=== PATIENT | female | born 1970 | race African-American/Black ===

== ENCOUNTER → 2017-11-24 09:53 | Outpatient (CLI) | payer MEDICAID, SELFPAY ==
[2017-11-24 10:08] LABS: Basophils % 0.3 % (0.1-2.0); Eosinophils # 0.4 K/mm3 (0.0-0.4); Eosinophils % 4.7 % (0.1-12.0); Hematocrit 38.4 % (37.0-47.0); Hemoglobin 12.2 g/dL (12.2-16.2); Lymphocytes # 3.1 K/mm3 (0.7-4.5); Lymphocytes % 41.2 K/mm3 (10-50); Mean Corpuscular HGB Conc 31.8 g/dL (31.8-35.4); Monocytes # 0.5 K/mm3 (0.1-1.0); Monocytes % 6.1 % (1.7-9.3); Neutrophils # 3.6 K/mm3 (1.8-7.8); Neutrophils % 47.7 % (37.0-80.0); Platelet Count 189 K/mm3 (142-424); Red Blood Count 4.52 M/mm3 (4.20-5.40); Red Cell Distribution Width 13.6 % (11.5-17.5); White Blood Count 7.6 K/mm3 (4.8-10.8)
[2017-11-24 10:54] LABS: Blood Urea Nitrogen 18 mg/dL (7-18); Carbon Dioxide 33 mmol/L (21.0-32.0); Chloride 101 mmol/L (98-107); Creatinine,Serum 0.93 mg/dL (0.55-1.02); Estimated Glomerular Filt Rate 65 ml/min (>60); GFR (African American) 78 ML/MIN (>60); Glucose 132 mg/dL (74-106); Sodium 143 mmol/L (136-145)
== END ==
PROVIDERS: PCP Family Medicine; Visit Provider Surgery
DX: R10.13 Epigastric pain (principal)
CPT/HCPCS: 36415; 80048; 85025; 93005

== ENCOUNTER 2017-12-09 06:56 | Day surgery (SDC) | payer MEDICAID, SELFPAY ==
[2017-12-09 07:13] VITALS: BMI 36.3
[2017-12-09 07:20] VITALS: BP 153/93; PULSE 71; RESP 18; TEMP 36.8; O2SAT 96
--- NOTE | 2017-12-09 07:30 | P.PN_ITS ---
[facility] Anesthesia Checklist - Patient Identification Patient Identification: Arm Band, Verbal (Name & ) - Structural Data Admitted From: Home Planned Operative Procedure/s: egd Consent for Planned Operative Procedure(s) Verified: Yes Verified Documents: Surgical Consent - NPO Status Verified Time NPO: 00:00 - Chart Verification Results Verified: CBC, BMP - Additional verifications Patient : No Anesthesia Reactions: No Hx Blood Transfusions: No Blood Transfusion Reaction: No Cephalosporin Allergy: No Previous Colonoscopy: No - Cardiovascular Assessment Heart Sounds: S1 & S2 Pulse Strength: Baseline Pulse Rhythm: Regular Peripheral Edema: No - Airway Assessment C-Spine Mobility Assessed: Yes TMJ Mobility Assessed: Yes Dentition: Edentulous - Neurological Assessment Level of Consciousness: Awake, Alert, Appropriate Hx Seizures: No Numbness or tingling in extremities: No - Anesthesia Plan Anesthesia Risk discussed: Yes ASA Class: III Anesthesia Type: [facility] Anesthesia HX I have reviewed the patient's past medical history: Yes Medical History: Reports:: Anxiety, Depression, Gastroesophageal Reflux Disease( GERD), Hyperlipidemia, Hypertension Denies:: Diabetes Mellitus Type 1, Diabetes Mellitus Type 2, Lung Disease, Seizures Laterality Cases: Right: Arthroscopy Knee Other Surgeries: Yes: Colonoscopy, EGD, Hernia Repair, Hysterectomy-Total, Tubal Ligation, Other Amputation: No Fractures: Yes (left hand ) *Family Hx:: Hypertension, Thyroid Disorder, Diabetes
[2017-12-09 07:37] VITALS: O2SAT 98
[2017-12-09 07:51] VITALS: BP 126/79; PULSE 89; RESP 20; TEMP 36.7; O2SAT 99
--- NOTE | 2017-12-09 07:53 | HMH.SCOPE ---
- Procedure: Date: 12/09/17 Procedure Performed:: Esophagogastroduodenoscopy with biopsy Indications:: This is a 47-year-old female who returns for short-term repeat esophagogastroduodenoscopy secondary to shallow antral ulcerations she is on medical therapy and is without complaints with regard to epigastric pain. Performing Provider:: Itz Darden MD Referring Provider:: Tata Leavitt APRN Sedation:: Monitored anesthesia care Procedure:: After informed consent was obtained, the patient was taken to the endoscopy suite. Monitored anesthesia care ensued after she was transferred to the left lateral decubitus position. The gastroscope was advanced. The stomach was entered. Retroflexion revealed a fairly small sliding hiatal hernia. Minimal inflammation was noted distally. No ulcerations were seen. Biopsies of the antrum were obtained. The pylorus was intubated. The duodenal mucosa appeared relatively normal. The gastroscope was carefully removed and the patient was transferred to recovery. Findings:: Ulcerations healed Fairly small sliding hernia Specimens:: Antral biopsy Recommendations:: Continue current medications Complications:: No immediate Estimated blood obtained (mL): 1
[2017-12-09 08:01] VITALS: BP 117/82; PULSE 81; RESP 18; O2SAT 100
[2017-12-09 08:11] VITALS: BP 119/78; PULSE 65; RESP 18; TEMP 36.6; O2SAT 100
[2017-12-09 08:21] VITALS: BP 120/79; PULSE 77; RESP 20; TEMP 36.8; O2SAT 99
== END 2017-12-09 08:30 | disposition home or self-care (01) ==
LOC: OUTP 06:57
PROVIDERS: Family Provider Family Medicine; PCP Nurse Practitioner; Visit Provider Surgery
PROC: 0DJ08ZZ Inspection of Upper Intestinal Tract, Via Natural or Artificial Opening Endoscopic (ICD-10-PCS; CPT 43235; principal; 2017-12-09 07:30)
DX: K44.9 Diaphragmatic hernia without obstruction or gangrene (principal); K25.9 Gastric ulcer, unspecified as acute or chronic, without hemorrhage or perforation; Z09 Encounter for follow-up examination after completed treatment for conditions other than malignant neoplasm; K29.70 Gastritis, unspecified, without bleeding
CPT/HCPCS: 43239

== ENCOUNTER → 2017-12-28 08:07 | Outpatient (CLI) | payer MEDICAID, SELFPAY ==
--- NOTE | 2017-12-28 08:32 | CA_ITS ---
PROCEDURE: 2-D M-mode and color Doppler study INDICATIONS FOR THE TEST: Chest pain COPD Heart Murmur Tobacco Smoking Palpitations+ Fatigue Syncope Edema+ Hypertension+Diabetes Mellitus Rheumatic Fever SOB GALLARDO+Obesity+Hyperlipidemia+ Family History HD Additional History ABN EKG, gerd PATIENT INFORMATION HEIGHT: 66 WEIGHT: 224 GENDER: Female B/P: 141/87 2-D/M-MODE INTERPRETATION: 2-D MEASUREMENTS OBSERVED VALUES IN CMS Right Ventricular Dimension (RVDd) 2.3 Interventricular Septum (Thickness)(IVsd) 0.9 Left Ventricular Internal Dimensions(LVIDd) 5.0 Left Ventricular Posterior Wall (Thickness)(LVPWd) 0.9 Aortic Root 2.6 Aortic Cusp Separation 2.0 Left Atrial Dimensions (LAD) 3.4 2D 1. Left atrium is mildly enlarged, left ventricle is normal size, there is mild qualitative concentric left ventricular hypertrophy, visually estimated ejection fraction of 50% with no obvious regional wall motion abnormality, endocardial surface of poorly visualized. 2. The right atrium and right ventricle are normal size and contractility. 3. The aortic valve is thickened and calcified leaflet continue to display mobility. 4. The mitral and tricuspid valvular grossly normal. 5. The pulmonic valve is poorly visualized 6. No significant pericardial effusion noted. DOPPLER INTERROGATION: Doppler interrogation of the aortic, mitral and tricuspid valvular presence of moderate aortic, mild mitral and tricuspid regurgitation, tricuspid and jet velocity is insufficient for calculation of the right ventricular systolic pressure, diastolic parameters are inconclusive. CONCLUSION: 1. Mildly enlarged left atrium, normal left ventricular size, mild qualitative concentric left ventricular hypertrophy, visually estimated ejection fraction 50% with no obvious regional wall motion abnormality, diastolic parameters are inconclusive. 2. Thickened and calcified aortic valve without aortic stenosis, there is moderate aortic insufficiency. 3. Mild mitral and tricuspid regurgitation 4. No significant pericardial effusion noted.
--- NOTE | 2017-12-28 09:14 | MM_ITS ---
MM Dig screening mamm BI w/CAD CAD Screening COMPARISON: Digital mammograms 09/24/2010 and digital right mammogram 06/12/2011 INDICATION: There is a history of breast cancer in the patient maternal aunt diagnosed before menopause. TECHNIQUE: Standard CC and MLO images were obtained. R2 CAD reviewed. FINDINGS: Moderate fibroglandular densities are seen in the central portions of both breast again slightly more prominent right breast than left. There are stable asymmetric glandular elements upper outer quadrant right breast. There is a benign-appearing calcification right breast. There is no suspicious lesion and there are no suspicious microcalcifications. IMPRESSION: Moderate breast density with no suspicious lesion seen BI-RADS Category: 2 Benign Finding(s) RECOMMENDED FOLLOW-UP: 1YR - 1 YEAR FOLLOW-UP (A letter has been sent to the patient regarding results of the study.)
== END ==
PROVIDERS: Family Provider Family Medicine; PCP Nurse Practitioner; Visit Provider Nurse Practitioner
DX: Z12.31 Encounter for screening mammogram for malignant neoplasm of breast (principal); R94.31 Abnormal electrocardiogram [ECG] [EKG]
CPT/HCPCS: 77067; 93017; 93306

== ENCOUNTER → 2017-12-28 09:30 | Outpatient (CLI) | payer MEDICAID, SELFPAY ==
[2017-12-28 09:51] LABS: Basophils % 0.3 % (0.1-2.0); Eosinophils # 0.2 K/mm3 (0.0-0.4); Eosinophils % 3.1 % (0.1-12.0); Hematocrit 41.2 % (37.0-47.0); Lymphocytes % 35.9 K/mm3 (10-50); Mean Corpuscular HGB Conc 31.5 g/dL (31.8-35.4); Mean Corpuscular Hemoglobin 27.4 pg (27.0-31.2); Mean Platelet Volume 7.9 fl (7.4-10.4); Monocytes # 0.4 K/mm3 (0.1-1.0); Monocytes % 6.3 % (1.7-9.3); Neutrophils % 54.4 % (37.0-80.0); Platelet Count 241 K/mm3 (142-424); Red Blood Count 4.74 M/mm3 (4.20-5.40); Red Cell Distribution Width 13.5 % (11.5-17.5); White Blood Count 5.5 K/mm3 (4.8-10.8)
[2017-12-28 10:00] LABS: Alanine Aminotransferase 50 U/L (12-78); Albumin Level 4.2 gm/dL (3.4-5.0); Albumin/Globulin Ratio 1.2 (1.1-1.8); Alkaline Phosphatase 100 U/L (46-116); Anion Gap 10.4 mEq/L (5-15); Aspartate Amino Transferase 25 U/L (15-37); Bilirubin,Total 0.3 mg/dL (0.2-1.0); Blood Urea Nitrogen 13 mg/dL (7-18); Calcium 9.1 mg/dL (8.5-10.1); Carbon Dioxide 34 mmol/L (21.0-32.0); Chloride 98 mmol/L (98-107); Chol/HDL Ratio 2.5 (1-3.5); Cholesterol 158 mg/dL (140-200); Creatinine,Serum 0.88 mg/dL (0.55-1.02); Estimated Glomerular Filt Rate 69 ml/min (>60); GFR (African American) 83 ML/MIN (>60); Globulin 3.4 gm/dl (1.3-3.2); Glucose 114 mg/dL (74-106); HDL Cholesterol 64 mg/dL (29-89); LDL Cholesterol 85 mg/dL (0-130); Potassium 3.4 mmoL/L (3.5-5.1); Sodium 139 mmol/L (136-145); Total Protein,Serum 7.6 gm/dL (6.4-8.2); Triglycerides 44 mg/dL (30-200); VLDL Cholesterol 9 mg/dL (0-40)
[2017-12-29 10:31] LABS: FSH 30.6 mIU/mL (.); LH 9.6 mIU/mL (.)
== END ==
PROVIDERS: Visit Provider Nurse Practitioner Obstetrics & Gynecology
DX: Z01.419 Encounter for gynecological examination (general) (routine) without abnormal findings (principal)
CPT/HCPCS: 36415; 80053; 80061; 83001; 83002; 85025

== ENCOUNTER → 2018-04-27 14:25 | Outpatient (CLI) | payer MEDICAID, SELFPAY ==
--- NOTE | 2018-04-27 14:27 | CT_ITS ---
CT sinus wo con CLINICAL INDICATION: Headaches, sinus infection, sinus polyps ITS.REASON: sinus polps ORDERING PHYSICIAN: Denis Joshua MD PATIENT AGE: 48 years COMPARISON: 01/24/2018 TECHNIQUE:Axial, sagittal, and coronal images are generated and reviewed without contrast. All CT scans at the facility use one or more dose reduction, viz: automated exposure control; ma/kV adjustment per patient size (including targeted exams where dose is matched to indication; i.e. head); or iterative reconstruction technique. FINDINGS: The frontal, ethmoid, and sphenoid sinuses have an unremarkable appearance. There is a retention cyst or polyp in the anterior aspect of the left maxillary sinus and 12 mm and also one in the posterior aspect of the right maxillary sinus at 8 mm. not significantly changed. No sinus air-fluid level is evident. The ostiomeatal units are patent. There is mild leftward nasal septal deviation.. The orbits have an unremarkable appearance as do the mastoid sinuses. There is some mild prominence of the adenoids and some increased soft tissue density in the right palatine tonsillar region. This is of questionable clinical significance and may benefit from direct visualization. There are scattered small nodes in the upper neck. The TMJs have an unremarkable appearance. IMPRESSION: 1. Small retention cysts or polyps in the maxillary sinuses not significantly changed. 2. Mild leftward nasal septal deviation. 3. Mild hypertrophy of the adenoids along with increased soft tissue density in the right palatine tonsil region which may benefit from direct visualization
== END ==
PROVIDERS: Family Provider Family Medicine; PCP Nurse Practitioner; Visit Provider Otolaryngology
DX: J30.9 Allergic rhinitis, unspecified (principal); J32.9 Chronic sinusitis, unspecified; J33.9 Nasal polyp, unspecified
CPT/HCPCS: 70486

== ENCOUNTER → 2018-06-23 08:15 | Outpatient (CLI) | payer MEDICAID, SELFPAY | PROVIDERS: Family Provider Family Medicine; PCP Family Medicine; Visit Provider Nurse Practitioner | DX: M79.89 Other specified soft tissue disorders (principal) | CPT/HCPCS: 93306 ==

== ENCOUNTER → 2018-10-13 14:20 | Outpatient (CLI) | payer MEDICAID, SELFPAY ==
--- NOTE | 2018-10-13 14:21 | CT_ITS ---
CT sinus wo con CLINICAL HISTORY:Sinusitis 2 months ITS.REASON: chronic sinusitis ORDERING PHYSICIAN: Denis Joshua MD PATIENT AGE: 48 years COMPARISON:04/27/2018 CT sinus TECHNIQUE: Axial, sagittal and coronal images are generated and reviewed. All CT scans at this facility use one or more dose reduction techniques, viz.: automated exposure control, ma/kV adjustment per patient size (including targeted exams where dose is matched to indication, i.e. head) or iterative reconstruction technique. PROCEDURE: IV Contrast: None FINDINGS: Maxillary Sinuses.: Right Maxillary Sinus: Trace mucosal thickening at the inferior right maxillary sinus involving medial lateral wall and floor. Small dome-shaped focal area of mucosal thickening or retention cyst at posteriorly 5 mm height. 11 mm base Left Maxillary sinus: 11 mm x 12 mm mm round polypoid area of mucosal thickening or retention cyst at anterior roof left maxillary sinus just anterior to the ostium of the left omc.: Both the right and left ostiomeatal complex and pathways remain patent ------- Ethmoid Air Cells. Mild mucosal thickening at mid left ethmoid air cells. Unimpressive. Sphenoid Sinuses. Trace mucosal thickening posteriorly at central sphenoid sinus region. Frontal Sinuses: moderate size. No mucosal thickening or findings here. Orbits. Unremarkable Overall rims and floor of the orbit intact.... TMJ is unremarkable. Mastoid air cells. Well-developed clear bilaterally. No mastoid effusion. Middle ear clear. External canal unremarkable. IACs symmetric. . Prominent adenoidal hypertrophy for age. Slightly more pronounced today than previous study. Whether is generous tonsils persisting right more so than left as well as generous lymphoid tissue along the base the tongue. Warrants visual inspection IMPRESSION........ 1. Minor observations at maxillary sinuses: .Small retention cyst or polyps at anterior left maxillary sinus and posterior right maxillary sinus.... Slight additional scant mucosal thickening inferior right maxillary sinus since previous study. No air-fluid levels. 2. Only scant minimal additional mucosal thickening posterior sphenoid sinuses seen today with possible mild mucosal thickening left ethmoid air cell. 3. Prominent adenoidal hypertrophy for age. Slightly more pronounced today than previous study.
== END ==
PROVIDERS: PCP Family Medicine; Visit Provider Otolaryngology
DX: H92.01 Otalgia, right ear (principal); J32.0 Chronic maxillary sinusitis; M26.609 Unspecified temporomandibular joint disorder, unspecified side
CPT/HCPCS: 70486

== ENCOUNTER → 2018-10-28 10:45 | Outpatient (CLI) | payer MEDICAID, SELFPAY ==
[2018-10-28 11:46] LABS: Basophils % 0.2 % (0.1-2.0); Eosinophils # 0.1 K/mm3 (0.0-0.4); Eosinophils % 1.3 % (0.1-12.0); Hematocrit 40.6 % (37.0-47.0); Hemoglobin 12.9 g/dL (12.2-16.2); Lymphocytes # 2.4 K/mm3 (0.7-4.5); Lymphocytes % 24.6 % (10-50); Mean Corpuscular HGB Conc 31.9 g/dL (31.8-35.4); Mean Corpuscular Hemoglobin 28.2 pg (27.0-31.2); Mean Corpuscular Volume 88.5 fl (81-99); Mean Platelet Volume 7.1 fl (7.4-10.4); Monocytes # 0.5 K/mm3 (0.1-1.0); Monocytes % 4.7 % (1.7-9.3); Neutrophils # 6.7 K/mm3 (1.8-7.8); Neutrophils % 69.2 % (37.0-80.0); Platelet Count 216 K/mm3 (142-424); Red Blood Count 4.58 M/mm3 (4.20-5.40); Red Cell Distribution Width 14.3 % (11.5-17.5); White Blood Count 9.7 K/mm3 (4.8-10.8)
== END ==
PROVIDERS: Visit Provider Otolaryngology
DX: Z01.818 Encounter for other preprocedural examination (principal); J32.0 Chronic maxillary sinusitis
CPT/HCPCS: 36415; 85025; 93005

== ENCOUNTER → 2018-11-18 13:07 | Outpatient (CLI) | payer MEDICAID, SELFPAY ==
--- NOTE | 2018-11-18 13:12 | XR_ITS ---
XR chest 2V HISTORY: ITS.REASON: ASTHMATIC BROCHITIS, CHRONIC COUGH ORDERING PHYSICIAN: Charmaine Camarena PATIENT AGE: 48 years COMPARISON: 07/09/2018 and has been seeing these have become a problem of the FINDINGS: The cardiomediastinal silhouette and pulmonary vascularity are within normal limits. The lungs are clear without infiltrates, suspicious nodules, or pleural effusions. No acute bony abnormalities. IMPRESSION: Negative chest, no acute finding
== END ==
PROVIDERS: PCP Nurse Practitioner; Visit Provider Nurse Practitioner Family
DX: J45.909 Unspecified asthma, uncomplicated (principal); R05 Cough
CPT/HCPCS: 71046

== ENCOUNTER 2019-10-15 19:13 | Inpatient (IN) | payer OTHER, SELFPAY ==
[2019-10-15 19:16] VITALS: BP 152/106; PULSE 81; RESP 20; TEMP 36.8; O2SAT 99; BMI 35.5
--- NOTE | 2019-10-15 19:38 | ECG_ITS ---
APPROVED REPORT Exam: Resting ECG HR:0 bpm ECG Measurements Heart Rate 0 AXES QRSd QRS 0 QT T 0 <Conclusion> No QRS complexes found, no ECG analysis possible Electronically signed by : Michael Estrella, 10/16/2019 18:12:20
[2019-10-15 19:53] LABS: Microscopic, Urine URINE MICROSCOPIC (MICROSCOPIC)
[2019-10-15 19:53] LABS: Adenovirus F 40/41, stool Not Detected (NotDetected); Astrovirus Not Detected (NotDetected); Campylobacter Not Detected (NotDetected); Cryptosporidium Not Detected (NotDetected); Cyclospora Cayetanesis Not Detected (NotDetected); Entamoeba histolytica Not Detected (NotDetected); Enteroaggregative E coli Not Detected (NotDetected); Enteropathogenic E coli Not Detected (NotDetected); Enterotoxigenic E coli Not Detected (NotDetected); Giardia lamblia Not Detected (NotDetected); Norovirus Not Detected (NotDetected); Plesimonas Shigalloides, PCR Not Detected (NotDetected); Rotavirus A Not Detected (NotDetected); Salmonella, PCR Not Detected (NotDetected); Sapovirus Not Detected (NotDetected); Shiga-like toxin E coli Not Detected (NotDetected); Shigella Enterovasive E coli Not Detected (NotDetected); Vibrio Cholerae Not Detected (NotDetected); Vibrio, PCR Not Detected (NotDetected); Yersinia Entercolitica, PCR Not Detected (NotDetected)
[2019-10-15 20:13] LABS: Basophils % 0.2 % (0.1-2.0); Eosinophils # 0.1 K/mm3 (0.0-0.4); Eosinophils % 1.8 % (0.1-12.0); Hematocrit 36.7 % (37.0-47.0); Hemoglobin 13.2 g/dL (12.2-16.2); Lymphocytes # 1.4 K/mm3 (0.7-4.5); Lymphocytes % 18.2 % (10-50); Mean Corpuscular HGB Conc 35.9 g/dL (31.8-35.4); Mean Corpuscular Hemoglobin 31.4 pg (27.0-31.2); Mean Corpuscular Volume 87.3 fl (81-99); Mean Platelet Volume 7.8 fl (7.4-10.4); Monocytes # 0.3 K/mm3 (0.1-1.0); Monocytes % 3.9 % (1.7-9.3); Neutrophils # 5.9 K/mm3 (1.8-7.8); Neutrophils % 75.9 % (37.0-80.0); Platelet Count 194 K/mm3 (142-424); Red Cell Distribution Width 14.4 % (11.5-17.5); White Blood Count 7.8 K/mm3 (4.8-10.8)
--- NOTE | 2019-10-15 20:14 | HMH.EDGENADL ---
ED Disposition Clinical Impression: Small bowel obstruction, C. difficile diarrhea Disposition: Admitted as Observation Condition on Discharge: Fair - Critical Care Critical Care Time: No Attestation: On 10/15/19, the high probability of a clinically significant, sudden or life threatening deterioration of the following system(s) required my full and direct attention, intervention and personal management. The time I documented below is in addition to time spent performing reported procedures but includes the following listed in this critical care notation. Medical Decision Making - Andrea Inquiry Pt receiving controlled substance: Yes Andrea was queried for this patient: Yes Reference #:: [id number] Risks and benefits of using a controlled substance: were not discussed with pt by me Comment: 7 rxs. was on suboxone until january Vital Signs: 10/15/19 19:16 10/15/19 20:15 10/15/19 21:32 Temperature 98.3 F Temperature Source Oral Pulse Rate Pulse Rate [Right Brachial] 81 89 77 Respiratory Rate 20 16 16 Blood Pressure Blood Pressure [Right Arm] 152/106 H 150/88 H 146/86 H Blood Pressure Mean [Right Arm] 121 108 106 Blood Pressure Source Blood Pressure Source [Right Arm] Automatic Cuff Automatic Cuff Automatic Cuff Blood Pressure Position Blood Pressure Position [Right Arm] Supine Sitting Sitting 02 Sat by Pulse Oximetry 99 99 98 Oxygen Delivery Method Room Air Room Air Room Air 10/15/19 22:58 10/15/19 23:02 Temperature 98.3 F Temperature Source Oral Pulse Rate 70 Pulse Rate [Right Brachial] 70 Respiratory Rate 20 18 Blood Pressure 148/73 H Blood Pressure [Right Arm] 148/73 H Blood Pressure Mean [Right Arm] 98 Blood Pressure Source Automatic Cuff Blood Pressure Source [Right Arm] Automatic Cuff Blood Pressure Position Sitting Blood Pressure Position [Right Arm] 02 Sat by Pulse Oximetry 98 Oxygen Delivery Method Room Air Room Air - Lab Data Lab Results 10/15/19 18:34: Troponin I < 0.02 10/15/19 19:42: Stl Aeromonas (PCR) Not detected, Stl C. cayetanensis PCR Not detected, Stool Rotavirus (PCR) Not detected, Stl Adenov F 40/41 PCR Not detected, Stool Astrovirus (PCR) Not detected, Stool Campylobacter PCR Not detected, Stl C.difficile Tox PCR Detected A, Stool Cryptosporidium PCR Not detected, Stl E.coli Shiga Tox PCR Not detected, Stool E coli O157 PCR Not detected, Stl Enterotoxigenic E PCR Not detected, Stool EPEC (PCR) Not detected, Stool EAEC (PCR) Not detected, Stl E. histolytica PCR Not detected, Stool Giardia Lamblia PCR Not detected, Stool Salmonella PCR Not detected, Stool Sapovirus (PCR) Not detected, Stl P. shigelloides PCR Not detected, Stl Shigella/EIEC PCR Not detected, St Y.enterocolitica PCR Not detected, Stool Vibrio (PCR) Not detected, Stl Vibrio cholerae PCR Not detected, Stl Norovirus GI/GII PCR Not detected 10/15/19 19:45: WBC 7.8, RBC 4.20, Hgb 13.2, Hct 36.7 L, MCV 87.3, MCH 31.4 H, MCHC 35.9 H, RDW 14.4, Plt Count 194, MPV 7.8, Neut % (Auto) 75.9, Lymph % (Auto) 18.2, [place] % (Auto) 3.9, Eos % (Auto) 1.8, Baso % (Auto) 0.2, Neut # (Auto) 5.9, Lymph # (Auto) 1.4, [place] # (Auto) 0.3, Eos # (Auto) 0.1, Baso # (Auto) 0.0 10/15/19 19:45: Sodium 139, Potassium 3.2 L, Chloride 101, Carbon Dioxide 25, Anion Gap 16.2 H, BUN 10, Creatinine 0.82, Estimated Creat Clear 131, Estimated GFR 74, Est GFR ( Amer) 90, Glucose 89, Calcium 9.1, Total Bilirubin 0.4, AST 13 L, ALT 26, Alkaline Phosphatase 99, Total Protein 7.4, Albumin 3.7, Globulin 3.7 H, Albumin/Globulin Ratio 1.0 L, Amylase 36 10/15/19 19:45: Lipase 86 10/15/19 19:48: Urine Color Yellow, Urine Appearance Clear, Urine pH 6.5, Ur Specific [place] <= 1.005, Urine Protein Negative, Urine Glucose (UA) Negative, Urine Ketones Negative, Urine Blood Negative, Urine Nitrate Negative, Urine Bilirubin Negative, Urine Urobilinogen 0.2, Ur Leukocyte Esterase Negative, Amorphous Sediment Trace Result diagrams: 10/15/19 19:45
[2019-10-15 20:15] VITALS: BP 150/88; PULSE 89; RESP 16; O2SAT 99
[2019-10-15 20:15] LABS: Lipase 86 u/L (73-393)
[2019-10-15 20:18] LABS: Alanine Aminotransferase 26 U/L (12-78); Albumin Level 3.7 gm/dL (3.4-5.0); Alkaline Phosphatase 99 U/L (46-116); Amylase 36 U/L (25-115); Anion Gap 16.2 mEq/L (5-15); Aspartate Amino Transferase 13 U/L (15-37); Bilirubin,Total 0.4 mg/dL (0.2-1.0); Blood Urea Nitrogen 10 mg/dL (7-18); Calcium 9.1 mg/dL (8.5-10.1); Carbon Dioxide 25 mmol/L (21.0-32.0); Chloride 101 mmol/L (98-107); Creatinine Clearance Estimated 131 mL/min (50-200); Creatinine,Serum 0.82 mg/dL (0.55-1.02); Estimated Glomerular Filt Rate 74 ml/min (>60); GFR (African American) 90 ML/MIN (>60); Globulin 3.7 gm/dl (1.3-3.2); Glucose 89 mg/dL (74-106); Potassium 3.2 mmoL/L (3.5-5.1); Sodium 139 mmol/L (136-145); Total Protein,Serum 7.4 gm/dL (6.4-8.2)
--- NOTE | 2019-10-15 20:24 | CT_ITS ---
PROCEDURE: CT ABDOMEN PELVIS W CON CLINICAL INDICATION: epigastric pain, feels a knot, patient has diagnosis of C diff colitis COMPARISON: No exams were available for comparison TECHNIQUE: IV Contrast: 75ML OPTIRAY 350 Oral Contrast none Axial images obtained with sagittal and coronal reformats. All CT scans at the facility use one or more dose reduction, viz: automated exposure control, ma/kV adjustment per patient size (including targeted exams where dose is matched to indication, i.e. head), or iterative reconstruction technique. FINDINGS: Lower thorax: No acute finding ABDOMEN: Liver: No masses or biliary dilatation. Gallbladder: Post cholecystectomy Pancreas: No masses or peripancreatic fluid collections. Spleen: unremarkable Adrenals: unremarkable Kidneys/ureters: The kidneys are normal in size and show symmetrical function both appearing normal. PELVIS: Reproductive: Post hysterectomy. Bladder: The urinary bladder is mostly decompressed, there is no free fluid in the pelvis. Appendix: The appendix is not definitely identified but there are no pericecal inflammatory changes. ABDOMEN & PELVIS: Stomach bowel: The stomach is normal. There are mildly dilated fluid-filled loops of small bowel throughout. There is a gradual decrease in caliber between the jejunum and mid and distal small bowel but there is no definite transition zone identified. There is moderate gaseous dilatation of the ascending and transverse colon. The descending and sigmoid colon are basically decompressed. Peritoneum: No abnormal fluid collections. No obvious inflammatory changes. No free air. There are bilateral fat containing inguinal hernias. Lymph nodes: No enlarged lymph nodes apparent. Vasculature: No evidence of abdominal aortic aneurysm. No retroperitoneal hemorrhage evident. Bones: No acute fracture IMPRESSION: Mildly abnormal small and large bowel a findings most consistent with clinical suspicion of C diff colitis and/or enteritis. Doubt mechanical small bowel obstruction Dictated by: Dr. Maikol Loza MD 10/16/2019 09:[address] Maikol Loza MD in [place] 10/16/2019 09:13
[2019-10-15 20:38] LABS: Appearance,Urine CLEAR (Clear); Bilirubin,Urine Negative (Negative); Blood, Urine Negative (Negative); Color,Urine YELLOW (Yellow); Glucose,Urine (UA) Negative (Negative); Ketones,Urine Negative (Negative); Leukocyte Esterase,Urine Negative (Negative); Nitrate,Urine Negative (Negative); PH,Urine 6.5 (5.0-8.5); Protein,Urine Negative (Negative); Specific Gravity, Urine <= 1.005 (1.005-1.030); Urobilinogen,Urine 0.2 EU/dl (0.2)
[2019-10-15 20:52] LABS: Amorphous Sediment,Urine Trace /lpf
[2019-10-15 20:59] LABS: Troponin I < 0.02 ng/ml (0.00-0.06)
[2019-10-15 21:32] VITALS: BP 146/86; PULSE 77; RESP 16; O2SAT 98
--- NOTE | 2019-10-15 21:59 | PC.NURSE ---
Dr Darden paged
--- NOTE | 2019-10-15 22:06 | PC.NURSE ---
Dr Taylor spoke with Dr Darden
[2019-10-15 22:53] LABS: Clostridium Difficile A/B, PCR Detected (NotDetected)
[2019-10-15 22:58] VITALS: BP 148/73; PULSE 70; RESP 20; O2SAT 98
--- NOTE | 2019-10-15 23:00 | PC.NURSE ---
speaking with dr calvillo again regarding pt having c diff
[2019-10-15 23:02] VITALS: BP 148/73; PULSE 70; RESP 18; TEMP 36.8; O2SAT 98
[2019-10-15 23:20] VITALS: BP 152/72; PULSE 71; RESP 21; TEMP 36.9; O2SAT 99; BMI 33.2
--- NOTE | 2019-10-15 23:29 | PC.NURSE ---
Pt arrived to floor at [id number]
[2019-10-16 04:00] VITALS: BP 129/79; PULSE 71; RESP 21; TEMP 36.8; O2SAT 98
--- NOTE | 2019-10-16 05:24 | PC.NURSE ---
PT. HAS C/O EPIGASTRIC PAIN X2 THIS SHIFT; TX WITH MORPHINE PER MAR; EFFECTIVENESS REPORTED. PT. C/O NAUSEA X1 THIS SHIFT; TX WITH ZOFRAN PER MAR; EFFECTIVENESS NOTED. PT. HAS NOT REPORTED ANY EPISODES OF VOMITING OR DIARRHEA THIS SHIFT. PT. HAS NOT C/O DIZZINESS OR SOA.
[2019-10-16 06:05] LABS: Basophils % 0.2 % (0.1-2.0); Eosinophils # 0.1 K/mm3 (0.0-0.4); Eosinophils % 2.7 % (0.1-12.0); Hematocrit 38.9 % (37.0-47.0); Hemoglobin 12.1 g/dL (12.2-16.2); Lymphocytes # 1.5 K/mm3 (0.7-4.5); Lymphocytes % 28.7 % (10-50); Mean Corpuscular HGB Conc 31.1 g/dL (31.8-35.4); Mean Corpuscular Hemoglobin 27.9 pg (27.0-31.2); Mean Corpuscular Volume 89.6 fl (81-99); Mean Platelet Volume 7.7 fl (7.4-10.4); Monocytes # 0.3 K/mm3 (0.1-1.0); Monocytes % 6.2 % (1.7-9.3); Neutrophils # 3.3 K/mm3 (1.8-7.8); Neutrophils % 62.3 % (37.0-80.0); Platelet Count 186 K/mm3 (142-424); Red Blood Count 4.34 M/mm3 (4.20-5.40); Red Cell Distribution Width 14.5 % (11.5-17.5); White Blood Count 5.2 K/mm3 (4.8-10.8)
[2019-10-16 06:15] LABS: Anion Gap 12.3 mEq/L (5-15); Blood Urea Nitrogen 9 mg/dL (7-18); Carbon Dioxide 29 mmol/L (21.0-32.0); Chloride 104 mmol/L (98-107); Creatinine Clearance Estimated 138 mL/min (50-200); Creatinine,Serum 0.75 mg/dL (0.55-1.02); Estimated Glomerular Filt Rate 82 ml/min (>60); GFR (African American) 99 ML/MIN (>60); Glucose 88 mg/dL (74-106); Potassium 3.3 mmoL/L (3.5-5.1); Sodium 142 mmol/L (136-145)
[2019-10-16 08:00] VITALS: BP 163/85; PULSE 91; RESP 22; TEMP 36.6; O2SAT 95
--- NOTE | 2019-10-16 08:34 | HMH.GSHP ---
HPI HPI: This is a 49-year-old female with a long history of intermittent abdominal pain who was scheduled to see gastroenterology today for further outpatient evaluation. She presented overnight to the emergency department with increasing crampy abdominal pain and diarrhea. No fevers. No hematemesis. No nausea or vomiting. No abdominal distention. She had radiographic evidence consistent with possible small bowel obstruction from internal herniation and she also had laboratory evidence of a C. difficile infection. She was placed on antibiotics and admitted for ongoing evaluation and management. [facility] History Medical History: Reports:: Anxiety, Depression, Gastroesophageal Reflux Disease(GERD), Hyperlipidemia, Hypertension, Migraine Denies:: Cancer, Diabetes Mellitus Type 1, Diabetes Mellitus Type 2, Internal Pacemaker, Lung Disease, MRSA, Seizures *Have you ever received a pneumonia vaccine?: No *Have you received a flu vaccine this season?: No Other Medical History: Denies: Blood Transfusion Reaction Laterality Cases: Right: Arthroscopy Knee Other Surgeries: Yes: Cholecystectomy, Colonoscopy, EGD, Hernia Repair, Hysterectomy-Total, Tubal Ligation, Other. No: Pacemaker Amputation: No Fractures: Yes (right foot x2) - *Social History Educational Level: Completed High School Smoking Status: Never smoker Alcohol Intake: current Alcohol Intake Frequency:: a few times a month Substance Use Type: denies use *Occupational Status:: unemployed Housing: house *Travel in the last 8 weeks: None - Psychiatric History Pschychiatric History:: Reports:: Anxiety, Depression Family Hx:: Diabetes, Hypertension Review of Systems - Constitutional Denies chills - Eyes Denies change in vision - ENT Denies difficulty swallowing - *Cardiovascular Denies chest pain - *Respiratory Denies cough - *Gastrointestinal Reports abdominal pain, Reports loose stools, Denies nausea, Denies vomiting - *Genitourinary Denies difficulty urinating - *Musculoskeletal Denies deformity - Integumentary/Breasts Denies lesions - *Neurologic Denies abnormal movements - Psychiatric Denies anxiety - Endocrine Denies cold intolerance - Hematologic/Lymphatic Denies easy bleeding - Allergic/Immunologic Denies hives Meds Home Medications Medication Instructions Recorded Confirmed Type hydrochlorothiazide 25 mg tablet 25 mg PO BID 10/19/17 10/15/19 History Atorvastatin Calcium [Atorvastatin 20 mg PO DAILY 12/09/17 10/15/19 History 20mg Tab] propranolol 40 mg tablet 40 mg PO BID 30 Days #60 05/30/18 10/15/19 History raNITIdine HCl [Acid Assayer Helper] 150 mg PO BID 10/15/19 10/15/19 History Allergies Allergy/AdvReac Type Severity Reaction Status Date / Time codeine [CODEINE] Allergy Intermediate I-ITCHING Verified 09/19/19 14:28 Exam Vital signs and Labs for Last 24 Hours: Temp Pulse Resp BP Pulse Ox 98.3 F 71 21 129/79 98 10/16/19 04:00 10/16/19 04:00 10/16/19 04:00 10/16/19 04:00 10/16/19 04:00 Laboratory Results - last 24 hr 10/15/19 18:34: Troponin I < 0.02 10/15/19 19:42: Stl Aeromonas (PCR) Not detected, Stl C. cayetanensis PCR Not detected, Stool Rotavirus (PCR) Not detected, Stl Adenov F 40/41 PCR Not detected, Stool Astrovirus (PCR) Not detected, Stool Campylobacter PCR Not detected, Stl C.difficile Tox PCR Detected A, Stool Cryptosporidium PCR Not detected, Stl E.coli Shiga Tox PCR Not detected, Stool E coli O157 PCR Not detected, Stl Enterotoxigenic E PCR Not detected, Stool EPEC (PCR) Not detected, Stool EAEC (PCR) Not detected, Stl E. histolytica PCR Not detected, Stool Giardia Lamblia PCR Not detected, Stool Salmonella PCR Not detected, Stool Sapovirus (PCR) Not detected, Stl P. shigelloides PCR Not detected, Stl Shigella/EIEC PCR Not detected, St Y.enterocolitica PCR Not detected, Stool Vibrio (PCR) Not detected, Stl Vibrio cholerae PCR Not detected, Stl Norovirus GI/GII PCR Not detected
--- NOTE | 2019-10-16 08:43 | XR_ITS ---
PROCEDURE: XR ACUTE ABDOMEN SERIES CLINICAL INDICATION: sbo / cDiff COMPARISON: CT scan abdomen and pelvis 10/15/2019 FINDINGS: The chest film reveals the lung noble are well-expanded and clear of infiltrate. The cardiac silhouette and vascularity are normal and there is no pleural fluid. Abdominal films show surgical clips right upper quadrant likely from previous cholecystectomy. There are few mildly dilated loops of small bowel mid abdomen. There is mild gaseous dilatation of the ascending colon, the descending and sigmoid colon are decompressed. There is no free air and no abnormal soft tissue shadows. IMPRESSION: Negative chest, mildly abnormal non-specific bowel gas pattern consistent with some degree of enteritis and/or colitis, there is less small bowel dilatation than seen on yesterday's CT scan Dictated by: Dr. Maikol Loza MD 10/16/2019 09:[address] Maikol Loza MD in [place] 10/16/2019 09:55
--- NOTE | 2019-10-16 11:34 | P.CONPHA_ITS ---
[facility] Pharmacy VTE Monitoring - Patient Demographics Admission date: 10/15/19 Report Date: 10/16/19 Time: 11:34 Allergies/Adverse Reactions: Patient Allergies codeine [CODEINE] Allergy (Intermediate, Verified 09/19/19 14:28) I-ITCHING Height: 1.7 m Weight: 96.19 kg Patient Problems: Current Active Problems Small bowel obstruction (Acute) C. difficile diarrhea (Acute) - VTE Risk Labs: VTE Related Lab Results Hgb 12.1 g/dL (12.2-16.2) L 10/16/19 05:47 Hct 38.9 % (37.0-47.0) 10/16/19 05:47 Plt Count 186 K/mm3 (142-424) 10/16/19 05:47 BUN 9 mg/dL (7-18) 10/16/19 05:47 Creatinine 0.75 mg/dL (0.55-1.02) 10/16/19 05:47 Estimated Creat Clear 138 mL/min (50-200) 10/16/19 05:47 Was VTE Risk Assessment Performed: Yes VTE Score: 3 VTE Risk Level: Low Risk - Prophylaxis VTE Prophylaxis Ordered?: Yes Types of VTE Prophylaxis: TEDS Knee High Location of Applied Device: Bilateral Lower Extremeties
--- NOTE | 2019-10-16 15:22 | HMH.PHAINT ---
HOME MEDICATIONS RECONCILED FROM MD OFFICE LIST AND SPEAKING WITH PATIENT. PATIENT STATES SHE ONLY TAKES 5 MEDICATIONS, ALTHOUGH THE MD LIST WAS MUCH LONGER. CALLED MD OFFICE AND TOLD THEM THE MEDS SHE TAKES AND THEY SAID THEY WOULD UPDATE THE LIST.
[2019-10-16 16:00] VITALS: BP 133/81; PULSE 70; RESP 16; TEMP 36.9; O2SAT 100
--- NOTE | 2019-10-16 16:07 | PC.NURSE ---
NO NEW CHANGES FROM PREVIOUS ASSESSMENT. PATIENT HAS TRIED SEVERAL TIMES THRU SHIFT TO REST. UNABLE TO DUE TO CRAMPING AND NAUSEA, THIS RN ADMINISTERED PAIN MEDICATION AND NAUSEA MEDICATION WHEN APPROPRIATE. PATIENT ABLE TO TAKE SHOWER WITH SHOWER CHAIR. AMBULATE IN ROOM, STEADY GAIT. NO OTHER CONCERNS OR NEEDS AT THIS TIME.
--- NOTE | 2019-10-16 19:25 | PC.NURSE ---
report given to giovani
[2019-10-16 19:59] VITALS: BP 164/87; PULSE 77; RESP 18; TEMP 36.5; O2SAT 98
--- NOTE | 2019-10-17 02:53 | PC.NURSE ---
A&O X4. PERRLA. 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 S1, S2 HEART SOUNDS NOTED UPON AUSCULTATION. +2 BILATERAL RADIAL AND PEDAL PULSES NOTED UPON PALPATION. CAP REFILL < 3 SECONDS. NO EDEMA NOTED THIS SHIFT THUS FAR. BILATERAL LUNG SOUNDS NOTED CLEAR THROUGHOUT UPON AUSCULTATION. PT DENIES HAVING A COUGH. TOLERATED RA WELL WITH NO COMPLAINTS. HYPERACTIVE BOWEL SOUNDS NOTED IN ALL 4 QUADS UPON AUSCULTATION. ABDOMEN NOTED SOFT, FLAT, WITH TENDERNESS NOTED IN THE UPPER LEFT QUAD. PT STATES SHE IS STILL HAVING DIARRHEA FREQUENTLY WITH WATERY CONSISTENCY AND ABD UPSET WITH NAUSEA. ADMINISTERED MORPHINE AND ZOFRAN PER DEC FOR RELIEF OF PAIN 8/10. PT STATES BOTH HELPED TREMENDOUSLY, RATING DECREASED PAIN A 4/10 UPON REASSESSMENT. PT HAS RESTED WELL THIS SHIFT WITH HER EYES CLOSED. AMB INDEPENDENTLY TO AND FROM BATHROOM WELL WITH NO COMPLAINTS. REFUSED TEDS. VSS. CALL LIGHT WITHIN REACH. REMAINS SAFE. WILL CONTINUE TO MONITOR.
[2019-10-17 03:40] VITALS: BP 153/87; PULSE 66; RESP 16; TEMP 36.8; O2SAT 99
[2019-10-17 05:57] VITALS: BMI 33.7
[2019-10-17 07:54] VITALS: BP 146/79; PULSE 104; RESP 18; TEMP 36.8; O2SAT 100
--- NOTE | 2019-10-17 08:04 | HMH.GSPN ---
Subjective Patient reports: feels better, diarrhea Exam Vital signs and Labs for Last 24 Hours: Temp Pulse Resp BP Pulse Ox 98.3 F 104 H 18 146/79 H 100 10/17/19 07:54 10/17/19 07:54 10/17/19 07:54 10/17/19 07:54 10/17/19 07:54 I & O for Last 24 hours: Intake & Output 10/14/19 10/15/19 10/16/19 10/17/19 11:59 11:59 11:59 11:59 Intake Total 825 / 825 2220 / 2220 Output Total 600 / 600 Balance 825 / 825 1620 / 1620 Weight 212 lb 1 oz 215 lb 3 oz - Constitutional no acute distress - *Routine Respiratory Exam Absent: respiratory distress - *Routine Cardiovascular Exam Present: RRR - *Routine Abdominal Exam Present: soft Progress Note: A&P (1) C. difficile diarrhea Status: Acute Assessment and plan: Improving after implementation of antibiotics. No definitive evidence radiographically of bowel obstruction and continuation of output essentially rules out the initial concern of small bowel obstruction. Discharge home today with completion of antibiotic course and close outpatient follow-up Current Visit: Yes
--- NOTE | 2019-10-17 08:06 | HMH.DCSUM ---
General - General Admission date:: 10/15/19 Discharge date: 10/17/19 HPI HPI: This is a 49-year-old female with a long history of intermittent abdominal pain who was scheduled to see gastroenterology today for further outpatient evaluation. She presented overnight to the emergency department with increasing crampy abdominal pain and diarrhea. No fevers. No hematemesis. No nausea or vomiting. No abdominal distention. She had radiographic evidence consistent with possible small bowel obstruction from internal herniation and she also had laboratory evidence of a C. difficile infection. She was placed on antibiotics and admitted for ongoing evaluation and management. Hospital Course Hospital Course: Follow-up abdominal films revealed improved bowel gas pattern. Reevaluation of the initial CT scan with radiology confirmed changes that were felt to be most likely consistent with her known C. difficile infection. No definitive evidence of small bowel obstruction noted. She continues to have bowel function and tolerated clear liquids. She was started on vancomycin by mouth and continued to convalesce well. She remained afebrile with stable and normal vital signs and was deemed appropriate for discharge home on the morning of October 17. Objective Vital signs: Temp Pulse Resp BP Pulse Ox 98.3 F 104 H 18 146/79 H 100 10/17/19 07:54 10/17/19 07:54 10/17/19 07:54 10/17/19 07:54 10/17/19 07:54 no acute distress - *Routine HEENT Exam Head: Present: normocephalic, atraumatic - *Routine Neck Exam Present: full ROM - Routine Chest/Breast/Axilla Exam Chest wall: Absent: tenderness - *Routine Respiratory Exam Absent: respiratory distress - *Routine Cardiovascular Exam Present: RRR - *Routine Abdominal Exam Present: soft - *Routine Extremities Exam Absent: cyanosis, clubbing, edema - Routine Back/Spine/Pelvis Exam Back/Spine: Present: full ROM - *Routine Skin Exam Present: intact - *Routine Neurological Exam Present: alert - Routine Psychiatric Exam Present: normal affect DS: Diagnosis - Discharge Diagnosis (1) C. difficile diarrhea Status: Acute Discharge Plan - Patient Discharge Instructions ACTIVITY: Ambulate as tolerated DIET: advance to your usual diet Patient Instructions: Clostridium difficile Infection - Follow up Plan Follow up with: Itz Darden MD [Staff Physician] - 2 weeks Disposition: Home, Self-Group Home Medications: Home Medications Medication Instructions Recorded Confirmed Type hydrochlorothiazide 25 mg tablet 25 mg PO BID 10/19/17 10/15/19 History Atorvastatin Calcium [Atorvastatin 20 mg PO DAILY 12/09/17 10/15/19 History 20mg Tab] propranolol 40 mg tablet 40 mg PO BID 30 Days #60 05/30/18 10/15/19 History raNITIdine HCl [Acid Enlisted Advisor] 150 mg PO BID 10/15/19 10/15/19 History Cholecalciferol (Vitamin D3) 50,000 unit PO MOTU 10/16/19 10/16/19 History [Vitamin D3 50,000 unit Cap] Vancomycin HCl [Vancocin HCl] 125 mg PO QID #40 cap 10/17/19 Rx Prescriptions/Medication Reconciliation: New Vancomycin HCl [Vancocin HCl] 125 mg PO QID #40 cap Continued hydrochlorothiazide 25 mg tablet 25 mg PO BID propranolol 40 mg tablet 40 mg PO BID 30 Days #60 Atorvastatin Calcium [Atorvastatin 20mg Tab] 20 mg PO DAILY raNITIdine HCl [Acid Enlisted Advisor] 150 mg PO BID Cholecalciferol (Vitamin D3) [Vitamin D3 50,000 unit Cap] 50,000 unit PO MOTU - Problem Reconciliation Problems Reviewed?: Yes
--- NOTE | 2019-10-17 10:03 | PC.NURSE ---
tried to make f/u appt but office closed due to holiday
--- NOTE | 2019-10-17 10:05 | HMH.PHAINT ---
DISCHARGED COUNSELING COMPLETED. PRESCRIPTION FOR VANCOMYCIN CAPSULES SUBMITTED TO [facility]. PT VERBALIZED UNDERSTANDING. ENCOURAGED TO CALL BACK WITH QUESTIONS OR CONCERNS.
--- NOTE | 2019-10-17 12:42 | PC.NURSE ---
called patient pharmacy who stated they didnt have vancomycin tabs. verified with md long term care phlebotomist to find out if he wanted her to wait or call them in somewhere else. md stated to find out who had them and call it in. however, [facility] called back stating they could give them enough until another shipment came in so prescription was called in to hometown. patient aware
--- NOTE | 2019-10-17 12:47 | PC.NURSE ---
THIS RN PHONED PATIENT TO INFORM HER THAT HER MEDICATION IS READY AT [facility].
== END 2019-10-17 10:45 | disposition home or self-care (01) | DRG 373 ==
LOC: ER 22:06 → 2ND 23:27
PROVIDERS: Emergency Medicine; Admitting Provider Surgery; Emergency Provider Emergency Medicine; PCP Nurse Practitioner; Visit Provider Surgery
DX: A04.72 Enterocolitis due to Clostridium difficile, not specified as recurrent (principal); I10 Essential (primary) hypertension; E78.5 Hyperlipidemia, unspecified; K21.9 Gastro-esophageal reflux disease without esophagitis; F41.8 Other specified anxiety disorders; Z88.5 Allergy status to narcotic agent; Z79.899 Other long term (current) drug therapy
CPT/HCPCS: 36415; 74021; 74177; 80048; 80053; 81001; 82150; 83690; 84484; 85025; 87507; 93005; 96365; 96375; 99285; J2405; J3370; Q9967

== ENCOUNTER → 2019-12-11 13:51 | Outpatient (POV) | payer OTHER, SELFPAY ==
[2019-12-11 15:13] LABS: Basophils % 0.3 % (0.1-2.0); Eosinophils # 0.1 K/mm3 (0.0-0.4); Eosinophils % 1.6 % (0.1-12.0); Hematocrit 39.3 % (37.0-47.0); Hemoglobin 12.4 g/dL (12.2-16.2); Mean Corpuscular HGB Conc 31.4 g/dL (31.8-35.4); Mean Corpuscular Hemoglobin 27.3 pg (27.0-31.2); Mean Corpuscular Volume 86.9 fl (81-99); Mean Platelet Volume 7.7 fl (7.4-10.4); Monocytes # 0.4 K/mm3 (0.1-1.0); Monocytes % 4.8 % (1.7-9.3); Neutrophils # 5.2 K/mm3 (1.8-7.8); Neutrophils % 67.3 % (37.0-80.0); Platelet Count 221 K/mm3 (142-424); Red Blood Count 4.53 M/mm3 (4.20-5.40); White Blood Count 7.7 K/mm3 (4.8-10.8)
[2019-12-11 16:12] LABS: Chloride 97 mmol/L (98-107)
[2019-12-11 16:13] LABS: Potassium 3.4 mmoL/L (3.5-5.1); Sodium 138 mmol/L (136-145)
[2019-12-11 16:15] LABS: Alanine Aminotransferase 32 U/L (12-78); Aspartate Amino Transferase 32 U/L (14-36); Blood Urea Nitrogen 12 mg/dl (7-17); Estimated Glomerular Filt Rate 89 ml/min (>60); GFR (African American) 108 ML/MIN (>60)
[2019-12-11 16:16] LABS: Albumin Level 4.3 g/dl (3.5-5.0); Albumin/Globulin Ratio 1.5 (1.1-1.8); Alkaline Phosphatase 96 U/L (38-126); Anion Gap 10.4 mEq/L (5-15); Bilirubin,Total 0.4 mg/dl (0.2-1.3); Calcium 10.2 mg/dl (8.4-10.2); Carbon Dioxide 34 mmol/L (22.0-30.0); Globulin 2.8 g/dL (1.3-3.2); Glucose 98 mg/dl (74-100); Total Protein,Serum 7.1 g/dl (6.3-8.2)
[2019-12-11 16:21] LABS: C-Reactive Protein 2.3 mg/L (0-4)
[2019-12-14 06:38] LABS: Deamidated Gliadin Abs, IgA 3 units (0-19); Deamidated Gliadin Abs, IgG 2 units (0-19); Endomysial IgA Antibody Negative (Negative); Tissue Transglutaminase IgA Ab <2 U/mL (0-3); Tissue Transglutaminase IgG Ab <2 U/mL (0-5)
[2019-12-14 12:34] LABS: Reticulin IgA Antibody Negative titer (Neg:<1:2.5)
[2019-12-14 16:23] LABS: Saccharomyces cerevisiae, IgA <20.0 Units (0.0-24.9); Saccharomyces cerevisiae, IgG <20.0 Units (0.0-24.9)
== END ==
PROVIDERS: PCP Nurse Practitioner; Visit Provider Nurse Practitioner Family
DX: A04.72 Enterocolitis due to Clostridium difficile, not specified as recurrent (principal); R19.4 Change in bowel habit; R14.0 Abdominal distension (gaseous); K59.00 Constipation, unspecified; R19.7 Diarrhea, unspecified; R10.13 Epigastric pain
CPT/HCPCS: 36415; 80053; 83516; 85025; 86140; 86255; 86256; 86671